=== PATIENT | male | born 1945 | race Caucasian/White ===

== ENCOUNTER 2016-05-30 22:34 | Inpatient (IN) | payer OTHER ==
[~2016-05-30] VITALS: Ht 162.6 cm; Wt 115.6 kg
[2016-05-30 23:41] LABS: HEMATOCRIT 41.3 % (39.0-50.0); HEMOGLOBIN 13.9 g/dl (14.0-18.0); IMMATURE GRANULOCYTES 0.5 % (0.0-1.0); MEAN CELL VOLUME 85.9 fL CALC (80.0-100.0); MEAN CORPUSCULAR HGB 28.9 pG CALC (26.0-32.0); MEAN CORPUSCULAR HGB CONC 33.7 g/L CALC (32.0-36.0); NEUT# 9.6 thou/uL (1.82-7.42); RED BLOOD COUNT 4.81 mill/uL (4.70-6.10); RED CELL DISTRI WIDTH 12.9 % (11.5-15.5)
[2016-05-30 23:56] LABS: ALBUMIN 4.4 g/dL (3.2-5.0); ALKALINE PHOSPHATASE 91 u/l (38-126); AMYLASE 42 u/l (30-110); ANION GAP 18 (6-22 (CALC)); BILIRUBIN, TOTAL 0.8 mg/dL (0.0-1.4); BUN 13 mg/dL (8-23); BUN/CREATININE RATIO 19 (12-20 (CALC)); CALCIUM 9.3 mg/dL (8.4-10.2); CARBON DIOXIDE 27 mmol/l (22-30); CHLORIDE 99 mmol/l (95-108); CREATININE 0.7 mg/dL (0.7-1.3); GFR > 60 ML/MIN (>=60 (CALC)); GFR FOR AFR.AMER. > 60 ML/MIN (>=60 (CALC)); GLUCOSE 225 mg/dL (82-115); LIPASE 38 u/l (23-300); POTASSIUM 4.3 mmol/l (3.5-5.1); SGOT/AST 84 u/l (19-48); SGPT/ALT 70 u/l (11-66); SODIUM 140 mmol/l (137-146); TOTAL PROTEIN 7.8 g/dL (6.3-8.2)
[2016-05-31 00:19] LABS: MYOGLOBIN 513 ng/mL (0 - 121)
[2016-05-31 06:58] VITALS: BP 154/84
[2016-05-31] MEDS ORDERED: ALTACE5 M1 PO (08:05)
[2016-05-31] MEDS ORDERED: ATORVASTATIN CA10 MG PO (08:06)
[2016-05-31] MEDS ORDERED: SYNTHROID25 MCG PO (08:06)
[2016-05-31] MEDS ORDERED: FLOMAX0.4 M1 PO (08:06)
[2016-05-31] MEDS ORDERED: METFORMIN HCL850 MG PO (08:07)
[2016-05-31] MEDS ORDERED: LANTUS100 MG/ML SC (08:07)
[2016-05-31] MEDS ORDERED: APIDRA1 ML SC (08:09)
[2016-05-31] MEDS ORDERED: ASPIRIN EC81 MG PO (08:09)
[2016-05-31 16:00] VITALS: BP 151/86
== END 2016-05-31 19:15 | DRG 446 ==
LOC: ED 22:34 → ED-I 05-31 05:40 → ED 05-31 05:55 → MS2 05-31 05:56
PROVIDERS: Emergency Medicine; ADMIT Internal Medicine; ATTEND Internal Medicine
DX: K80.10 Calculus of gallbladder with chronic cholecystitis without obstruction (principal); E11.65 Type 2 diabetes mellitus with hyperglycemia; I10 Essential (primary) hypertension; I25.10 Atherosclerotic heart disease of native coronary artery without angina pectoris; E03.9 Hypothyroidism, unspecified; Z95.5 Presence of coronary angioplasty implant and graft; Z79.4 Long term (current) use of insulin
CPT/HCPCS: S0164